=== PATIENT | male | born 1970 | race Caucasian/White ===

== ENCOUNTER 2025-03-22 08:42 | Inpatient (IN) ==
--- NOTE | 2025-03-22 08:49 | Emergency Department Note ---
Impression & Plan Shortness of breath, Hypertensive emergency, CHF exacerbation ED Provider Note NAME: HERACLIO MAXWELL AGE: 55 SEX: M : 1970 ARRIVES VIA: Walk-In INFORMANT: Patient, ED PROVIDER(S): Dillon Chaidez MD CHIEF COMPLAINT: Shortness of breath MEDICAL DECISION MAKING: Patient presents with the above. Patient with significant hypertension and with associated orthopnea and tachypnea noted even at the bedside. Patient was ordered blood work EKG chest x-ray coag studies. The patient was ordered sublingual nitro and Nitropaste. Patient was also ordered IV Lasix 40 mg. Repeat blood pressure prior to administration medications showed a blood pressure 1 2 4/146. The sublingual nitro was canceled. Patient still had Nitropaste administered along with IV Lasix. Patient still with significant hypertension and was ordered additional nitro sublingual. Patient's blood work shows a white count of 11.3 with a hemoglobin 13.9 with a normal platelet count. The patient's kidney function is unremarkable. Troponin 20.5 with a BNP of 268. I did speak with the on-call hospitalist service and the patient was admitted to the medicine service. Discussion w/ other healthcare providers: Michaela Marina PA-C and Dr. Reyes Prior /Outside records reviewed: None Differential diagnosis: Reactive airway disease, pneumonia, pneumothorax, COPD, CHF, ACS, pulmonary embolism, musculoskeletal, GERD as well as other pathologies were considered. Diagnostics, as interpreted by me: ECG: Sinus with PVCs, rate of 100, wide QRS, left lower branch block pattern, no obvious STEMI. T wave inversions in the high lateral leads. Cardiac monitoring: An order was placed for continuous cardiac monitoring. The monitor shows a rate of 98 with sinus rhythm. Patient was placed on pulse oximetry Medical decision rules: None Imaging studies: I informally interpreted the patient's chest x-ray shows pulmonary Vascular congestion with formal report to follow. HPI: Patient presents to concern for shortness of breath and MAK. When trying to lay flat at the bedside the patient became significantly dyspneic and needed to sit upright. The patient has had associated orthopnea and MAK. He states that he did not take his morning medications as he works nights at a steel factory and presented here after his symptoms. They have gotten progressively worse over the last 2 days. No cough or fever. He has had leg swelling. Patient denies any recent changes in medications. He denies any increase in salt or processed foods in his diet. No recent prolonged car plane travel. He states that he does take blood thinners for prior history of A-fib and as well as Dr. Padron with cardiology. PAST MEDICAL HISTORY: See Below PAST SURGICAL HISTORY: See Below SOCIAL HISTORY: See Below HOME MEDICATIONS: See Below ALLERGIES: See Below VITALS: See Below PHYSICAL EXAMINATION: GENERAL: NAD, non-toxic. EYE EXAM: Normal conjunctiva. PERRL, no anisocoria and EOM's grossly intact w/o pain. OROPHARYNX: Moist mucus membranes, grossly normal dentition. NECK: Trachea midline, no stridor. LUNGS: Clear to auscultation. Normal chest wall mechanics. HEART: NSR, no MRG. ABDOMEN: Abdomen soft, non-tender, no masses, no rebound or guarding. BACK: No CVA TTP. SKIN: No rashes and no bruising. UPPER EXTREMITIES: Upper extremities are grossly normal. LOWER EXTREMITIES: Grossly normal, 1-2+ bilateral symmetric lower extremity edema without calf pain or erythema. NEURO EXAM: Awake and alert, follows commands, no obvious facial asymmetry, normal speech, moves all 4 extremities. Past Med/Surg History Problem List (Updated 03/22/25 @ 17:56 by Dillon Chaidez MD) Shortness of breath (Acute) Chest pain Elevated d-dimer Subtherapeutic international normalized ratio (INR) Acute on chronic heart failure with preserved ejection fraction (HFpEF) Noncompliance with medications Elevated troponin CHF exacerbation (Acute) Hypertensive emergency (Acute) Social History Smoking Status: Never smoker Tobacco Type: Smokeless Tobacco (Dip or Chew) Second Hand Exposure: No; Do You Dip or Chew Tobacco: Yes; Hx Alcohol Use: Yes Alcohol type: hard liquor Hx Substance Use: No Preferred Language: Comoran Communication Ability: Effective Therapy Teacher Required: No Beliefs That Will Affect Care: None Current Living Situation: Family Feels Safe at Home: Yes Assistive Devices: CPAP and Glasses Allergies Allergies Allergy/AdvReac Type Severity Reaction Status Date / Time No Known Allergies Allergy Verified 03/22/25 13:40 Home Meds Home Medications Medication Instructions Recorded Confirmed albuterol sulfate 90 mcg/actuation 2 inh inhalation Q4H PRN 03/22/25 03/22/25 aerosol inhaler SOB/Wheezing diltiazem HCl 120 mg 120 mg PO QAM 03/22/25 03/22/25 capsule,extended release 24 hr lisinopril 40 mg tablet 40 mg PO QAM 03/22/25 03/22/25 metformin 500 mg tablet,extended 1,000 mg PO BID 03/22/25 03/22/25 release 24 hr metoprolol tartrate 50 mg tablet 50 mg PO BID 03/22/25 03/22/25 torsemide 20 mg tablet 60 mg PO QAM 03/22/25 03/22/25 warfarin 5 mg tablet 5 mg PO DAILY 03/22/25 03/22/25 Results & Data (ED) Vital Signs Vital Signs - 24 hr 03/22/25 08:44 03/22/25 09:10 03/22/25 09:44 Temperature 36.5 C Temperature Source Temporal Artery Scan Pulse Rate 101 H 98 H Pulse Rate [Right Finger] 96 H Pulse Rate from SpO2 Sensor Respiratory Rate 23 26 H Respiratory Effort / Characteristics Spontaneous Short of Breath SOB on Exertion Respiratory Depth Respiratory Pattern Regular Tachypnea Blood Pressure 243/148 H Blood Pressure [Right Arm] 184/146 H Blood Pressure Mean 179 Blood Pressure Mean [Right Arm] 158 Pulse Oximetry 91 92 Oxygen Delivery Method Room Air Room Air Sepsis Recent Fever Within 48 Hours No Sepsis New/Unexplained Change in Mental Status No Sepsis Action Taken by Nursing No Action Required 03/22/25 09:46 03/22/25 10:00 03/22/25 10:27 Temperature Temperature Source Pulse Rate 91 H Pulse Rate [Right Finger] 91 H 91 H Pulse Rate from SpO2 Sensor 93 H Respiratory Rate 20 24 Respiratory Effort / Characteristics Short of Breath SOB on Exertion Respiratory Depth Shallow Respiratory Pattern Blood Pressure 176/121 H Blood Pressure [Right Arm] 178/125 H 183/123 H Blood Pressure Mean 139 Blood Pressure Mean [Right Arm] 142 143 Pulse Oximetry 89 L 91 Oxygen Delivery Method Room Air Sepsis Recent Fever Within 48 Hours Sepsis New/Unexplained Change in Mental Status Sepsis Action Taken by Long-Term Medications Current Medication List: was personally reviewed by me Laboratory Data Attestation: I reviewed the patient's lab results. 03/22/25 09:00 03/22/25 09:00 Lab Results 12/09/25 Range/Units 09:00 WBC 11.34 H (4.8-10.8) K/ul RBC 5.13 (4.70-6.10) M/uL Hgb 13.9 L (14.0-18.0) g/dL Hct 42.6 (42.0-52.0) % MCV 83.0 (80.0-100.0) fL MCH 27.1 (25.0-34.0) pg MCHC 32.6 (32.0-36.0) g/dL RDW Std Deviation 46.0 (36.4-46.3) fL RDW Coeff of Sanjuanita 15.2 H (11.5-14.5) % Plt Count 269 (130-400) K/uL MPV 11.6 (9.4-12.4) fL Immature Gran % (Auto) 0.3 % Neut % (Auto) 69.9 % Lymph % (Auto) 16.5 % [place] % (Auto) 9.3 % Eos % (Auto) 3.4 % Baso % (Auto) 0.6 % Neut # (Auto) 7.93 H (1.40-6.50) K/uL Lymph # (Auto) 1.87 (1.20-3.40) K/uL [place] # (Auto) 1.06 H (0.11-0.59) K/uL Eos # (Auto) 0.38 (0.00-0.50) K/uL Baso # (Auto) 0.07 (0.00-0.20) K/uL Immature Gran # (Auto) 0.03 (0.01-0.20) K/uL PT 11.9 (9.0-12.0) Seconds INR 1.1 (0.9-1.1) APTT 29 (21-31) Seconds PTT Ratio 1.1 Sodium 140 (136-145) mmol/L Potassium 3.9 (3.5-5.1) mmol/L Chloride 105 (98-107) mmol/L Carbon Dioxide 28 (21-32) mmol/L Anion Gap 7 (3-11) BUN 14 (6-23) mg/dl Creatinine 0.81 (0.6-1.4) mg/dl Est Cr Clr Drug Dosing 136.8 ml/min eGFR 105.43 BUN/Creatinine Ratio 17.3 (10-20) Glucose 111 H (70-99(Fasting)) mg/dl Estimat Average Glucose 134 mg/dl Hemoglobin A1c 6.3 H (4.5-5.6) % Calcium 9.1 (8.6-10.3) mg/dl Magnesium 1.9 (1.7-2.4) mg/dl Total Bilirubin 0.6 (0.2-1.0) mg/dl AST 15 (13-39) U/L ALT 11 (7-52) U/L Alkaline Phosphatase 72 (34-104) U/L Troponin I High Sens 20.5 H (0-20) pg/ml B-Natriuretic Peptide 268 H (0-100) pg/ml Total Protein 7.7 (6.0-8.3) gm/dl Albumin 4.4 (3.4-5.0) gm/dl Globulin 3.3 (2.5-4.0) gm/dl Albumin/Globulin Ratio 1.3 (0.9-2) Administered Medications Enoxaparin Sodium (Enoxaparin Inj 120 Mg/0.8 Ml Syr) 120 mg SQ Q12H [facility] Stop: 04/21/25 14:59 Last Admin: 03/22/25 15:16 Dose: 120 mg Documented By: MECCA Furosemide (Furosemide 40 Mg/4 Ml Vial) 40 mg IV [id number] [facility] Stop: 04/21/25 16:59 Last Admin: 03/22/25 17:09 Dose: 40 mg Documented By: MECCA Insulin Aspart (Insulin Aspart Per Unit Charge) 0 units SC ACHS [facility] Stop: 04/21/25 13:14 Last Admin: 03/22/25 17:09 Dose: 5 units Documented By: MECCA Co-signed By: MARK Admin: 03/22/25 13:33 Dose: Not Given Documented By: QGV Nitroglycerin (Nitroglycerin 2% Ointment 30gm Tube) 2 inch EXT Q6H [facility] Stop: 04/21/25 11:14 Last Admin: 03/22/25 17:10 Dose: 2 inch Documented By: Admin: 03/22/25 14:49 Dose: Not Given Documented By: MECCA Warfarin Sodium (Warfarin Sod 5 Mg Tab) 5 mg PO DAILY@1600 [facility] Stop: 04/21/25 15:59 Last Admin: 03/22/25 15:17 Dose: 5 mg Documented By: MECCA Discontinued Medications Furosemide (Furosemide 40 Mg/4 Ml Vial) 40 mg IV NOW STA Stop: 03/22/25 08:56 Last Admin: 03/22/25 09:04 Dose: 40 mg Documented By: luba Lisinopril (Lisinopril 20 Mg Tab) 20 mg PO NOW STA Stop: 03/22/25 10:39 Last Admin: 03/22/25 11:15 Dose: 20 mg Documented By: APPLE Metoprolol Succinate (Metoprolol Succ 25mg Ext Rel Tab) 25 mg PO NOW STA Stop: 03/22/25 10:42 Last Admin: 03/22/25 11:15 Dose: 25 mg Documented By: APPLE Miscellaneous Information (Patient's Allergy Info Needs Entered) 1 each N/A Q30M ST[facility] Stop: 03/22/25 11:42 Last Admin: 03/22/25 13:40 Dose: 1 each Documented By: QGV Nitroglycerin (Nitroglycerin Sl 0.4 Mg/Tab Tab) 0.4 mg SL NOW STA Stop: 03/22/25 08:56 Last Admin: 03/22/25 10:06 Dose: Not Given Documented By: Nitroglycerin (Nitroglycerin 2% Ointment 30gm Tube) 1 inch EXT NOW STA Stop: 03/22/25 08:56 Last Admin: 03/22/25 09:03 Dose: 1 inch Documented By: luba Nitroglycerin (Nitroglycerin Sl 0.4 Mg/Tab Tab) 0.4 mg SL NOW STA Stop: 03/22/25 09:51 Last Admin: 03/22/25 10:05 Dose: 0.4 mg Documented By: Potassium Chloride (Potassium Chloride Crtab 20 Meq Tabcr) 20 meq PO NOW STA Stop: 03/22/25 10:42 Last Admin: 03/22/25 11:15 Dose: 20 meq Documented By: APPLE Spironolactone (Spironolactone 12.5 Mg Tab) 12.5 mg PO NOW ONE Stop: 03/22/25 11:37 Last Admin: 03/22/25 12:57 Dose: 12.5 mg Documented By: QGV Imaging Data Radiologist's Impression: Chest X-Ray 03/22/25 08:55 XR chest 1V portable CLINICAL HISTORY: Dyspnea. COMPARISON STUDY: No previous studies for comparison. FINDINGS: There is no pneumothorax or pleural effusion. Several old right-sided rib fractures are incidentally noted. There is moderate elevation the right hemidiaphragm. There is cardiomegaly with pulmonary vascular congestion. There is apparent medial right basilar opacity. This may represent atelectasis or pneumonia. IMPRESSION: 1. Apparent medial right basilar opacity. This may be atelectatic or artifactual. However, pneumonia would be difficult to exclude. Radiographic follow up is recommended. 2. Cardiomegaly with pulmonary vascular congestion. 3. Moderate elevation of the right hemidiaphragm. ACT 112: Negative or not required by law. Electronically signed by: Renato Coleman M.D. 03/22/2025 9:40 AM Discharge Plan Visit Data Chief Complaint: Shortness of Breath/Dyspnea Stated Complaint: SOB, CHEST TIGHT, HX HIGH BP ED Provider: Dillon Chaidez Discharge Problem: Shortness of breath, Hypertensive emergency, CHF exacerbation Patient Disposition: Admitted As Inpatient Condition: Good Discharge Instructions Interventions: ED Discharge Assessment Last Done: 03/22/25 13:36 Discharge Problem: CHF exacerbation Qualifiers: Heart failure type: unspecified Qualified Code(s): I50.9 - Heart failure, unspecified
[2025-03-22] MEDS: NITROGLYCERIN 2% OINTMENT 30GM TUBE EXT STA (09:03)
[2025-03-22] MEDS: FUROSEMIDE 40 MG/4 ML VIAL IV STA (09:04)
[2025-03-22 09:28] LABS: Hematocrit (blood only) 42.6 % (42.0-52.0); Hemoglobin 13.9 g/dL (14.0-18.0); Immature Granulocytes # (auto) 0.03 K/uL (0.01-0.20); Immature Granulocytes % (auto) 0.3 %; Mean Corpuscular Hemoglobin 27.1 pg (25.0-34.0); Mean Corpuscular Volume 83.0 fL (80.0-100.0); Platelet Count 269 K/uL (130-400); RDW Standard Deviation 46.0 fL (36.4-46.3); Red Blood Count 5.13 M/uL (4.70-6.10); White Blood Count 11.34 K/ul (4.8-10.8)
--- NOTE | 2025-03-22 09:41 | XRay Report ---
XR chest 1V portable CLINICAL HISTORY: Dyspnea. COMPARISON STUDY: No previous studies for comparison. FINDINGS: There is no pneumothorax or pleural effusion. Several old right-sided rib fractures are inc identally noted. There is moderate elevation the right hemidiaphragm. There is cardiomegaly with pulm onary vascular congestion. There is apparent medial right basilar opacity. This may represent atelect asis or pneumonia. IMPRESSION: 1. Apparent medial right basilar opacity. This may be atelectatic or artifactual. However, pneumonia would be difficult to exclude. Radiographic follow up is recommended. 2. Cardiomegaly with pulmonary vascular congestion. 3. Moderate elevation of the right hemidiaphragm. ACT 112: Negative or not required by law. Electronically signed by: Renato Coleman M.D. 03/22/2025 9:40 AM
[2025-03-22 09:45] LABS: Alanine Aminotransferase 11.0 U/L (7-52); Albumin Globulin Ratio 1.3 (0.9-2); Albumin Level 4.4 gm/dl (3.4-5.0); Alkaline Phosphatase 72.0 U/L (34-104); Anion Gap 7.0 (3-11); Bilirubin,Total 0.6 mg/dl (0.2-1.0); Blood Urea Nitrogen 14.0 mg/dl (6-23); Calcium 9.1 mg/dl (8.6-10.3); Carbon Dioxide 28.0 mmol/L (21-32); Chloride 105.0 mmol/L (98-107); Creatinine Clr Calc Pharmacy 136.8 ml/min; Globulin 3.3 gm/dl (2.5-4.0); Glucose 111.0 mg/dl (70-99(Fasting)); Magnesium 1.9 mg/dl (1.7-2.4); Potassium 3.9 mmol/L (3.5-5.1); Sodium 140.0 mmol/L (136-145); Total Protein 7.7 gm/dl (6.0-8.3)
[2025-03-22 09:57] LABS: INR 1.1 (0.9-1.1); Partial Thromboplastin Time 29 Seconds (21-31); Prothrombin Time 11.9 Seconds (9.0-12.0)
[2025-03-22] MEDS: NITROGLYCERIN SL 0.4 MG/TAB TAB SL STA ×2 (10:05→10:06)
--- NOTE | 2025-03-22 10:14 | History & Physical Report ---
Date of Service March 22, 2025 Assessment & Plan (1) CHF exacerbation: (2) Elevated troponin: (3) Hypertensive emergency: (4) Noncompliance with medications: Plan Patient is a 55y/o M with PMHx significant for DM type II, LILLIANA on CPAP, history of atrial flutter anticoagulated on Coumadin, chronic diastolic CHF, HTN, morbid obesity, tobacco use disorder and history of alcohol abuse as per records who presented to the ED with c/o SOB x past few days, primarily with exertion; + orthopnea. Also with exertional chest tightness. #Acute on chronic diastolic CHF ISO medication noncompliance CXR: cardiomegaly w/ pulm vasc congestion CXR did also note possible medial R basilar opacity c/f atelectasis vs artifact vs PNA -Slight leukocytosis on labs however no infectious s/sx to suggest PNA; denies cough/congestion, fever -Likely atelectatic in nature, ISP ordered TTE, 08/2024: EF 60-64%, moderately increased LV wall thickness, grade I DD, mildly enlarged aortic root, dilated proximal IVC BNP 268 Check updated TTE Supposed to be taking torsemide 60mg QAM TPA >> unclear when this was last taken S/p 40mg IV Lasix in ED Continue IV Lasix 40mg BID for now Replete electrolytes PRN Monitor daily wts, I&Os closely Supplemental O2 PRN for goal O2 sat>90% Check AM lipid panel >> not on statin therapy [employer] #HTN emergency #Elevated troponin 2/2 HTN emergency ISO medication noncompliance BP 240s/140s on arrival S/p SL nitro x 1, nitro paste, 40mg IV Lasix in ED BP 180s/120s at time of admission shortly after 10AM Will give 20mg po lisinopril, 25mg po Lopressor, Aldactone 12.5mg now Then continue with Lopressor 25mg BID, lisinopril 40mg QAM, Aldactone 12.5mg QAM Hold Cardizem as per below Continue nitro paste Q6H for now Appreciate cards consult Trend trop EKG with CP PRN #H/o L anterior fascicular block #H/o LVH with secondary QRS widening and repolarization abnormality Both of these findings seen on prior EKG done in August 2024 EKG today appears grossly unchanged compared to prior #H/o atrial flutter s/p TAVON guided DCCV in 2019 #Chronic anticoagulation therapy with Coumadin #Subtherapeutic INR Last seen by Terry rosenberg in August 2020 Was previously on Eliquis >> unclear why this was stopped INR 1.1 today, states he took his Coumadin yesterday Starting SQ Lovenox bridge w/ 5mg Coumadin daily for now >> follow repeat PT/INR Check BLE venous doppler US given BLE edema, subtherapeutic INR Unclear if pt has been taking Cardizem >> last filled in August 2024 #Medication noncompliance Pt admits to not taking meds on routine basis Most meds last filled in Dec 2024 per external med hx report #DMII Hgb A1c 7.5% as of August 2024 On metformin SSI protocol while admitted Appreciate glycemic pharm consult for assistance w/ insulin management Follow BSG checks ACHS #H/o alcohol abuse as per records Last alcoholic beverage consumed approx 2wk ago #Tobacco use Daily chewing tobacco use Cessation encouraged Denied need for nicotine patch at this time #LILLIANA Intermittent noncompliance w/ CPAP [employer] Agreeable with CPAP HS during hospitalization Education provided on the importance of CPAP compliance #Morbid obesity Lifestyle changes encouraged DVT Prophylaxis: SQ Lovenox, Coumadin Code Status: FULL CODE Disposition: Admit to PCU Patient seen in collaboration with Dr. Reyes. Please see addendum. I spent a total of 85 minutes coordinating, documenting, and providing care for this patient excluding time spent in the performance of separately billed services or time spent by another provider/QHP. This included personally reviewing all current laboratories and imaging studies, medical reconciliation, outpatient chart review and discussion with specialists. This chart was completed in part utilizing Speech Voice Recognition Software. Grammatical errors, random word insertions, pronoun errors, and incomplete sentences are an occasional consequence of this system due to software limitations, ambient noise, and hardware issues. Any formal questions or concerns about the content, text, or information contained within the body of this dictation should be directly addressed to the provider for clarification. History of Present Illness Chief Complaint: SOB Primary Care Provider: Damian Mejia DO Patient is a 55y/o M with PMHx significant for DM type II, LILLIANA on CPAP, history of atrial flutter anticoagulated on Coumadin, chronic diastolic CHF, HTN, morbid obesity, tobacco use disorder and history of alcohol abuse as per records who presented to the ED with c/o SOB. History obtained from the patient, discussion with ED provider and associated chart review. Admits to worsening SOB over the "past couple of days." Primarily with exertion however he has been experiencing significant orthopnea. Has LILLIANA, somewhat noncompliant with CPAP use. Has also noticed worsening BLE edema over the past week. States he takes his medications "every couple of days." Did not take any medications [employer]. When questioned in particular regarding his diuretic regimen, he states that he last took his torsemide "a few days ago" and that he does not like taking this medication as prescribed because it makes him urinate too often. Does not keep track of his weight; unsure of baseline weight. Has been experiencing some chest tightness, primarily with exertion. Typically resolves with rest. Had some lightheadedness and dizziness yesterday. No reported cough or fever. Urinating without issue. Passing bowels okay. Uses chewing tobacco. Home Medications Medication Instructions Recorded Confirmed Type albuterol sulfate 90 mcg/actuation 2 inh inhalation Q4H PRN 03/22/25 03/22/25 History aerosol inhaler SOB/Wheezing diltiazem HCl 120 mg 120 mg PO QAM 03/22/25 03/22/25 History capsule,extended release 24 hr lisinopril 40 mg tablet 40 mg PO QAM 03/22/25 03/22/25 History metformin 500 mg tablet,extended 1,000 mg PO BID 03/22/25 03/22/25 History release 24 hr metoprolol tartrate 50 mg tablet 50 mg PO BID 03/22/25 03/22/25 History torsemide 20 mg tablet 60 mg PO QAM 03/22/25 03/22/25 History warfarin 5 mg tablet 5 mg PO DAILY 03/22/25 03/22/25 History Past Med/Surg History Problem List (Updated 03/22/25 @ 11:21 by Michaela Renner PA-C) Noncompliance with medications Elevated troponin CHF exacerbation Hypertensive emergency Social History Smoking Status: Never smoker Tobacco Type: Smokeless Tobacco (Dip or Chew) Preferred Language: Uzbek Feels Safe at Home: Yes Review of Systems Review of Systems: At least ten systems reviewed and negative, except as noted in the HPI. Physical Exam Physical Exam: General: Obese M, NAD, sitting up at side of bed, A&Ox3 HEENT: Normocephalic, atraumatic, moist mucous membranes Respiratory: Mild tachypnea at rest, O2 sat 89-90% on RA, bibasilar crackles, no wheezing, no accessory muscle use Cardiovascular: RRR, 1+ RLE, 1-2+ LLE Abdomen/GI: Normal bowel sounds, soft, nontender to palpation in all quadrants. Extremities/Musculoskeletal: No cyanosis or clubbing, extremities motor strength intact, moves all extremities Neurologic: No overt focal deficits, CN's II-XI not formally tested but appear grossly intact bilaterally Results & Data Results & Data Vital Signs (Past 12 Hours) Vital Signs Temp Pulse Pulse Resp BP BP Pulse Ox 03/22/25 09:46 91 H 20 178/125 H 89 L 03/22/25 09:44 98 H 03/22/25 09:10 96 H 26 H 184/146 H 92 03/22/25 08:44 36.5 C 101 H 23 243/148 H 91 O2 Del Method 03/22/25 09:46 Room Air 03/22/25 09:44 03/22/25 09:10 Room Air 03/22/25 08:44 Room Air Laboratory Results Short CBC 03/22/25 Range/Units 09:00 WBC 11.34 H (4.8-10.8) K/ul Hgb 13.9 L (14.0-18.0) g/dL Hct 42.6 (42.0-52.0) % Plt Count 269 (130-400) K/uL BMP 03/22/25 09:00 Sodium 140 Potassium 3.9 Chloride 105 Carbon Dioxide 28 BUN 14 Creatinine 0.81 Glucose 111 H Calcium 9.1 Liver Function 03/22/25 Range/Units 09:00 Total Bilirubin 0.6 (0.2-1.0) mg/dl AST 15 (13-39) U/L ALT 11 (7-52) U/L Alkaline Phosphatase 72 (34-104) U/L Albumin 4.4 (3.4-5.0) gm/dl Diagnostic Findings Chest X-Ray 03/22/25 08:55 XR chest 1V portable CLINICAL HISTORY: Dyspnea. COMPARISON STUDY: No previous studies for comparison. FINDINGS: There is no pneumothorax or pleural effusion. Several old right-sided rib fractures are incidentally noted. There is moderate elevation the right hemidiaphragm. There is cardiomegaly with pulmonary vascular congestion. There is apparent medial right basilar opacity. This may represent atelectasis or pneumonia. IMPRESSION: 1. Apparent medial right basilar opacity. This may be atelectatic or artifactual. However, pneumonia would be difficult to exclude. Radiographic follow up is recommended. 2. Cardiomegaly with pulmonary vascular congestion. 3. Moderate elevation of the right hemidiaphragm. ACT 112: Negative or not required by law. Electronically signed by: Renato Coleman M.D. 03/22/2025 9:40 AM Medications Administered Discontinued Medications Furosemide (Furosemide 40 Mg/4 Ml Vial) 40 mg IV NOW STA Stop: 03/22/25 08:56 Last Admin: 03/22/25 09:04 Dose: 40 mg Documented By: luba Nitroglycerin (Nitroglycerin Sl 0.4 Mg/Tab Tab) 0.4 mg SL NOW STA Stop: 03/22/25 08:56 Last Admin: 03/22/25 10:06 Dose: Not Given Documented By: Nitroglycerin (Nitroglycerin 2% Ointment 30gm Tube) 1 inch EXT NOW STA Stop: 03/22/25 08:56 Last Admin: 03/22/25 09:03 Dose: 1 inch Documented By: luba Nitroglycerin (Nitroglycerin Sl 0.4 Mg/Tab Tab) 0.4 mg SL NOW STA Stop: 03/22/25 09:51 Last Admin: 03/22/25 10:05 Dose: 0.4 mg Documented By: MR Supervising Physician Co-Signing Physician Notes I have seen and discussed the case with the collaborating advanced practitioner. I agree with the above H&P. I have reviewed and confirmed the patients medical history, the findings on physical examination, and the patients diagnosis and treatment plan with Zurdo WISE and agree with the information documented. Evaluated at bedside with daughter present. Reports chest tightness and SOB started yesterday. Patient states that he just forgets his meds and takes them "sometimes"...It was attempted to explore any barriers to him taking his medications and it seems to be more about perceived importance. It was expressed how vital it is to take his meds and to continue his AC to prevent the debilitating effects and the progressive nature of his comorbities. His daughter was at bedside and reports being unaware of the degree of her father's illnesses. Patient states its been awhile since he took his meds. He states it may have been insurance as to why he is not on Farxiga or Eliquis any longer. Exam notable for pleasant gentleman sitting at bedside, cardiac exam with RRR, no murmur appreciated, no wheezing or crackles, 2+ BLE pitting edema, seeming R>L EKG from august Reviewed from [facility], similar read to current: CONCLUSIONS: Sinus tachycardia Left anterior fascicular block Left ventricular hypertrophy Abnormal ECG When compared with ECG of 17-Aug-2020 12:09, Left anterior fascicular block is now Present T wave amplitude has increased in Lateral leads Ventricular Rate: 102 Atrial Rate: 102 WI Interval: 184 QRS Duration: 114 QT/QTc: 374/487 ms P-R-T [place]: 20 : -55 : 63 degrees #HTN Emergency #Acute on chronic HFpEF Reduced from 243 to 178 over a manner of about two hours. Patient did not take his BP meds for "some time" He has previously been on metorpolol succinate 50mg bid, diltazem 180mg and lisinopril 40mg. Given his noncompliance will reintroduce ACI, BB, and start spironolactone. Will defer resumption of CCB to Cards, but iso HF exacerbation will hold at this time repeat ECHO Cards consult continue IV lasix continue nitropaste with hold for sbp <160 #Hx of a flutter s/p DCCV bridge back onto coumadin add warfarin 5mg this afternoon #LILLIANA encourage compliance cpap hs #tobacco use 1 can snuff daily counselled on cessation, declined #alcohol use last drink 2 weeks ago, encouraged abstinence iso multiple cardiac comorbities #morbid obesity should be counselled, however, at time of exam multiple other issues discussed and patient overwhelmed with multitude of other recommendations I spent a total of 25 minutes coordinating, documenting, and providing care for this patient excluding time spent in the performance of separately billed services. All of the aforementioned completed outside of collaborating with the assigned advanced practitioner for a full treatment plan. I have reviewed the advanced practitioner's documentation, and I agree with, and take responsibility for the plan of care
[2025-03-22] MEDS ORDERED: ENOXAPARIN 1 MG/KG SQ SCH (10:45)
[2025-03-22] MEDS ORDERED: METOPROLOL SUCC 25MG EXT REL TAB PO ONE (10:45)
[2025-03-22] MEDS ORDERED: PHARMACY GLYCEMIC MGMT CONSULT PRN (10:49)
[2025-03-22] MEDS ORDERED: CARBOHYDRATES FOR HYPOGLYCEMIA PO PRN (10:49)
[2025-03-22] MEDS ORDERED: GLUCOSE 10 TAB/TUBE PO PRN (10:49)
[2025-03-22] MEDS ORDERED: GLUCOSE 40% GEL 15 GM TUBE PO PRN (10:49)
[2025-03-22] MEDS ORDERED: GLUCAGON FOR INJ 1 MG VIAL SQ PRN (10:49)
[2025-03-22] MEDS ORDERED: DEXTROSE 50% 50 ML SYRINGE IV PRN (10:49)
[2025-03-22] MEDS: METOPROLOL SUCC 25MG EXT REL TAB PO STA (11:15)
[2025-03-22] MEDS: POTASSIUM CHLORIDE CRTAB 20 MEQ TABCR PO STA (11:15)
[2025-03-22 11:20] LABS: Hemoglobin A1C 6.3 % (4.5-5.6)
[2025-03-22] MEDS ORDERED: POLYETHYLENE (MIRALAX) 17 GM PACK PO PRN (11:47)
[2025-03-22] MEDS ORDERED: ONDANSETRON INJ 2 MG/ML 2 ML VIAL IV PRN (11:47)
[2025-03-22] MEDS ORDERED: MAGNESIUM HYDROXIDE SUSP 30 ML UDC PO PRN (11:47)
--- NOTE | 2025-03-22 12:32 | Cardiology Consultation ---
Date of Consultation March 22, 2025 Assessment & Plan (1) Hypertensive emergency: (2) Chest pain: (3) Shortness of breath: (4) Elevated troponin: (5) Acute on chronic heart failure with preserved ejection fraction (HFpEF): (6) Subtherapeutic international normalized ratio (INR): (7) Elevated d-dimer: (8) Noncompliance with medications: Plan Assessment: 55 year old male with history of paroxysmal Atrial flutter with prior cardioversion, HTN, LILLIANA on CPAP with known medication non-compliance that presents with several weeks of worsening dyspnea, chest tightness on exertion and orthopnea. BP markedly elevated. Patient has not taken regular doses of any of his medications including his warfarin. Cardiology consulted for further evaluation and recommendations. Plan: 1. Hypertensive emergency 2. chest pain 3. Shortness of breath 4. Elevated Troponin 5. Acute on Chronic HFpEF 6. Elevated d-dimer 7. Non-compliance with medications -patient with known non-compliance of his medications for multiple reasons/partly related to shift work. -BP markedly elevated with some improvement after receiving spironolactone, Toprol xl, Lisinopril, Furosemide and Nitro paste. -chest pain with mild troponin elevation in the setting of markedly elevated blood pressures as well as evidence of volume overload on exam. -Continue with Furosemide 40mg IV BID -Obtain echocardiogram to assess overall structure and function -Continue Lisinopril 40mg QD, Toprol xl 25mg PO BID, Spironolactone 12.5mg Daily -Continue Nitro paste at this time -Strict I&O, daily weights with a standing scale and close monitoring of renal function/electrolytes. Serum K > 4.0 and serum mag > 2.0 -Further recommendations pending echocardiogram as appropriate -Continue to monitor on telemetry -Known non-compliance of all medications including warfarin. Elevated D-dimer. Venous duplex negative. may consider CT chest to exclude PE as well as address any concerns of possible superimposed infectious process -Continue with dose titration of warfarin (bridging with Lovenox) to obtain therapeutic INR. Case has been discussed with Dr. Mcgee. Further recommendations regarding plan of care as per his assessment. LILLIE Morrison [facility] Supervising Physician Co-Signing Physician Notes Attending attestation: Case reviewed with the advanced practitioner. I have personally performed a history and physical examination on the patient. I have reviewed the advanced practitioner's documentation on the date of service referenced in note, and I agree with, and take responsibility for the plan of care. Subjective: Patient states feeling better by the time I had seen him having been transferred from the emergency department to the progressive care unit. His presenting blood pressure today was 243/148 and is now down to 164/97. Telemetry reveals sinus rhythm in the 90s Review of chart reveals past diagnosis of typical atrial flutter for which he underwent transesophageal echocardiogram guided direct-current cardioversion at [facility] performed by Dr. Hartman in March,. Exam: Cardiovascular regular rhythm, no murmurs, bilateral lower extremity edema, right worse than left Data: EKG performed on arrival 03/22/2025 revealed sinus rhythm at 100 bpm, diffuse nonspecific repolarization abnormalities perhaps in keeping with high blood pressure related heart disease Mild troponin elevation with measurements of 20.5, 22.3, and 20.1 PG per mL (flat trend) Impression/ Plan: Hypertensive urgency Nonadherence Possible mild volume overload on chest x-ray * Agree with plan to resume outpatient treatment with metoprolol succinate 25 mg twice daily, warfarin, spironolactone. * Agree with Lovenox bridge given subtherapeutic INR and history of past atrial flutter although he appears to be in sinus rhythm at present * Agree with topical nitroglycerin 2 inches every 6 hours, lisinopril * Echocardiogram completed and will be reviewed. Further recommendations will be forthcoming Justen Mcgee DO History of Present Illness Reason for Consultation: Hypertensive emergency; Non-compliance Requesting Physician: Dr. Reyes [facility] hospitalist Attending Physician: Diane Reyes MD History of Present Illness HPI: Patient is a 55 year old male with PMHx as outlined below that presents to the ER with complaints of shortness of breath with exertion over the past week, +orthopnea and exertional chest tightness. Notes only taking his medications "every few days" and admits to only taking a partial dose of of his diuretic one or two times per week due to increased urination making it difficult with his work. He is sitting up in a chair at time of my examination, endorses difficulty laying flat. He has not been able to lay flat in bed or even on his side for the past 3-4 days. He does not monitor his BP at home or weights, but has been noticing a steady increase in chest tightness with associated dyspnea for past few weeks, most notable this week. BP markedly elevated on arrival 243/148 EKG on arrival SR with PVC, left atrial enlargement, LAFB, LVH This was compared with an EKG from [facility] 08/2024 and appears unchanged. Chest xray IMPRESSION: 1. Apparent medial right basilar opacity. This may be atelectatic or artifactual. However, pneumonia would be difficult to exclude. Radiographic follow up is recommended. 2. Cardiomegaly with pulmonary vascular congestion. 3. Moderate elevation of the right hemidiaphragm. Elevated WBC D-dimer positive Venous doppler negative for DVT Mild troponin elevation, flat 20.5/22.3 Last known hospitalization was 08/19-08/21/2024 at [facility] for acute resp failure with hypoxia (pneumonia/bronchitis) Cardiac problems: 1. History of Typical atrial flutter dx in 2019, started on Eliquis but transitioned to Warfarin, Metoprolol and diltiazem s/p DCCV 04/13/2020 2. HTN 3. HFpEF 4. LILLIANA on CPAP 5. Obesity 6. Tobacco use Allergies Allergy/AdvReac Type Severity Reaction Status Date / Time No Known Allergies Allergy Verified 03/22/25 13:40 Home Medications Medication Instructions Recorded Confirmed Type albuterol sulfate 90 mcg/actuation 2 inh inhalation Q4H PRN 03/22/25 03/22/25 History aerosol inhaler SOB/Wheezing diltiazem HCl 120 mg 120 mg PO QAM 03/22/25 03/22/25 History capsule,extended release 24 hr lisinopril 40 mg tablet 40 mg PO QAM 03/22/25 03/22/25 History metformin 500 mg tablet,extended 1,000 mg PO BID 03/22/25 03/22/25 History release 24 hr metoprolol tartrate 50 mg tablet 50 mg PO BID 03/22/25 03/22/25 History torsemide 20 mg tablet 60 mg PO QAM 03/22/25 03/22/25 History warfarin 5 mg tablet 5 mg PO DAILY 03/22/25 03/22/25 History Patient History Social History Smoking Status: Never smoker Tobacco Type: Smokeless Tobacco (Dip or Chew) Second Hand Exposure: No; Do You Dip or Chew Tobacco: Yes; Hx Alcohol Use: Yes Alcohol type: hard liquor Hx Substance Use: No Preferred Language: Ugandan Communication Ability: Effective Life Support Technician Required: No Beliefs That Will Affect Care: None Current Living Situation: Family Feels Safe at Home: Yes Assistive Devices: CPAP and Glasses Review of Systems Review of Systems: All systems reviewed & are unremarkable except as noted in HPI & below Physical Exam Constitutional: well developed, + ill appearing and + obese; no acute distress Neck: normal visual inspection and trachea midline Respiratory: no respiratory distress, no labored breathing and no cough Auscultation: + diminished lung sounds (bilateral bases ); no crackles, no rales, no rhonchi and no wheezes Cardiovascular: Rate/Rhythm: regular rate and regular rhythm Heart Sounds: normal S1 and normal S2; no murmur Vessels: dorsalis pedis pulses present; no JVD Extremities: + edema (+1 BLE Right appears larger than left ) Skin: no rashes, warm and dry Results & Data Vital Signs (Past 12 Hours) Vital Signs Temp Pulse Pulse Resp BP BP Pulse Ox 03/22/25 11:47 03/22/25 10:27 91 H 24 176/121 H 91 03/22/25 10:00 91 H 183/123 H 03/22/25 09:46 91 H 20 178/125 H 89 L 03/22/25 09:44 98 H 03/22/25 09:10 96 H 26 H 184/146 H 92 03/22/25 08:44 36.5 C 101 H 23 243/148 H 91 Pulse Ox O2 Del Method O2 Del Method 03/22/25 11:47 92 Room Air 03/22/25 10:27 03/22/25 10:00 03/22/25 09:46 Room Air 03/22/25 09:44 03/22/25 09:10 Room Air 03/22/25 08:44 Room Air Laboratory Results Cardiac Enzymes 03/22/25 03/22/25 03/22/25 Range/Units 09:00 10:50 13:00 AST 15 (13-39) U/L Troponin I High Sens 20.5 H 22.3 H 20.1 H (0-20) pg/ml B-Natriuretic Peptide 268 H (0-100) pg/ml Coagulation 03/22/25 Range/Units 09:00 PT 11.9 (9.0-12.0) Seconds APTT 29 (21-31) Seconds B-Natriuretic Peptide 268 H (0-100) pg/ml CBC 03/22/25 Range/Units 09:00 WBC 11.34 H (4.8-10.8) K/ul RBC 5.13 (4.70-6.10) M/uL Hgb 13.9 L (14.0-18.0) g/dL Hct 42.6 (42.0-52.0) % Plt Count 269 (130-400) K/uL Neut # (Auto) 7.93 H (1.40-6.50) K/uL Lymph # (Auto) 1.87 (1.20-3.40) K/uL [place] # (Auto) 1.06 H (0.11-0.59) K/uL Eos # (Auto) 0.38 (0.00-0.50) K/uL Baso # (Auto) 0.07 (0.00-0.20) K/uL Comprehensive Metabolic Panel 03/22/25 Range/Units 09:00 Sodium 140 (136-145) mmol/L Potassium 3.9 (3.5-5.1) mmol/L Chloride 105 (98-107) mmol/L Carbon Dioxide 28 (21-32) mmol/L BUN 14 (6-23) mg/dl Creatinine 0.81 (0.6-1.4) mg/dl Glucose 111 H (70-99(Fasting)) mg/dl Calcium 9.1 (8.6-10.3) mg/dl AST 15 (13-39) U/L ALT 11 (7-52) U/L Alkaline Phosphatase 72 (34-104) U/L Total Protein 7.7 (6.0-8.3) gm/dl Albumin 4.4 (3.4-5.0) gm/dl Intake and Output 03/21/25 03/22/25 03/22/25 22:59 06:59 14:59 Output Total 200 / 200 Balance -200 / -200 Output: Urine 200 / 200 Other: Weight 126.6 kg Weight Measurement Method Chair Scale Patient Weight 03/23/25 06:59 Weight 126.6 kg Diagnostic Findings Echocardiogram 08/20/2024 [facility] LVEF 60-64% LV wall thickness moderately increased (concentric) Grade I diastolic dysfunction No dilated cardiac chambers Aortic root is mildly enlarged Prox IVC dilated. Coding Level of Care Code 63437 IN/OBS CONSULT LVL 5,80M Diagnoses Hypertensive emergency I16.1 Chest pain R07.9 Shortness of breath R06.02 Elevated troponin R79.89 Acute on chronic heart failure with preserved ejection fraction (HFpEF) I50.33 Subtherapeutic international normalized ratio (INR) R79.1 Elevated d-dimer R79.89 Noncompliance with medications Z91.148 Time Spent (min) 50
[2025-03-22] MEDS: SPIRONOLACTONE 12.5 MG TAB PO ONE (12:57)
--- NOTE | 2025-03-22 13:26 | Pharmacy Report ---
Pharmacy Glycemic Short Note 2 - Date of Service March 22, 2025 - Glycemic Short BSG Results (Last 24 hours): 03/22/25 03/22/25 09:00 13:00 Glucose 111 H POC Glucose 100 H OUTPATIENT ANTIDIABETIC REGIMEN: * Metformin 1000 mg ER PO BID A1c = 6.3% ASSESSMENT: * Jaime is a 55 yo M with h/o DM type II who presented to the ED with c/o SOB for the past few days and exertional chest tightness. * He is well controlled on metformin as an outpatient, evidenced by A1c of 6.3%. Metformin has been held for admission. He has been started on SC short-acting insulin ACHS. Hold basal insulin pending additional BSG data. PLAN FOR INPATIENT GLYCEMIC CONTROL: * Hold outpatient oral diabetes medications * Basal insulin * none * Bolus insulin * NovoLog per scale ACHS or Q6hrs while NPO * Goal Range: Low 110 mg/dL - High 160 mg/dL * Correction Factor: 25 mg/dL/unit * Nutritional / Prandial insulin per carb ratio of 1 unit per 8 grams CHO consumed
--- NOTE | 2025-03-22 13:31 | Ultrasound Report ---
BILATERAL LOWER EXTREMITY VENOUS DOPPLER CLINICAL HISTORY: Bilateral lower extremity edema. COMPARISON STUDY: No previous studies for comparison. TECHNIQUE: Sonography of the deep venous system of the bilateral lower extremities was performed. Co mpression and augmentation were evaluated. FINDINGS: The bilateral common femoral, superficial femoral and popliteal veins were compressible. A ugmentation was normal. Flow was shown within the deep calf vessels. IMPRESSION: No evidence of deep venous thrombus within the bilateral lower extremities. ACT 112: Negative or not required by law. Electronically signed by: Renato Coleman M.D. 03/22/2025 1:29 PM
[2025-03-22] MEDS: INSULIN ASPART PER UNIT CHARGE SC SCH (13:33)
[2025-03-22] MEDS: NITROGLYCERIN 2% OINTMENT 30GM TUBE EXT SCH (14:49)
[2025-03-22] MEDS: ENOXAPARIN INJ 120 MG/0.8 ML SYR SQ SCH (15:16)
[2025-03-22] MEDS: WARFARIN SOD 5 MG TAB PO SCH (15:17)
[2025-03-22] MEDS: FUROSEMIDE 40 MG/4 ML VIAL IV SCH (17:09)
[2025-03-22] MEDS: OPTIRAY 320 125ml IV ONE (18:27)
[2025-03-22] MEDS: ACETAMINOPHEN 325 MG TAB PO PRN (18:37)
--- NOTE | 2025-03-22 19:02 | CT Scan Report ---
CT pulmonary angiogram with IV contrast History: Chest pain COMPARISON: None TECHNIQUE: CT angiography of the chest was performed without IV contrast followed by IV contrast, including 3D post processing CTA image reconstruction. Dose reduction techniques were achieved by using automatic exposure control and/or adjustment of mA and/or kV according to patient size and/or use of iterative reconstruction technique. FINDINGS: Diagnostic quality: Adequate There is no evidence for pulmonary embolism. The heart is not enlarged. There is no pericardial effusion. There are no abnormally enlarged hilar or mediastinal lymph nodes. The central tracheobronchial tree is clear. Small pleural effusions. Mosaic attenuation of the lung parenchyma. Limited visualized upper abdomen. No destructive osseous changes are seen. IMPRESSION: No evidence for pulmonary embolism. Small pleural effusions. Mosaic attenuation of the lung suggesting small airway or small vessel disease. Electronically signed by Chirag Cha 03-22-2025 7:02 PM
--- NOTE | 2025-03-22 19:52 | XCELERA ---
[id number] \\[id number]
[2025-03-22] MEDS: METOPROLOL SUCC 25MG EXT REL TAB PO SCH (20:02)
[2025-03-23 06:26] LABS: Hematocrit (blood only) 40.5 % (42.0-52.0); Hemoglobin 13.3 g/dL (14.0-18.0); Immature Granulocytes # (auto) 0.03 K/uL (0.01-0.20); Immature Granulocytes % (auto) 0.3 %; Mean Corpuscular Hemoglobin 27.1 pg (25.0-34.0); Mean Corpuscular Volume 82.7 fL (80.0-100.0); Platelet Count 263 K/uL (130-400); RDW Standard Deviation 45.9 fL (36.4-46.3); Red Blood Count 4.90 M/uL (4.70-6.10); White Blood Count 9.30 K/ul (4.8-10.8)
[2025-03-23 06:56] LABS: INR 1.2 (0.9-1.1); Prothrombin Time 12.8 Seconds (9.0-12.0)
[2025-03-23 06:57] LABS: Anion Gap 7.0 (3-11); Blood Urea Nitrogen 17.0 mg/dl (6-23); Calcium 9.0 mg/dl (8.6-10.3); Carbon Dioxide 30.0 mmol/L (21-32); Chloride 102.0 mmol/L (98-107); Cholesterol 139.0 mg/dl (0-200); Creatinine Clr Calc Pharmacy 107.3 ml/min; Glucose 87.0 mg/dl (70-99(Fasting)); HDL Cholesterol 25.0 mg/dl; Magnesium 1.9 mg/dl (1.7-2.4); Potassium 3.4 mmol/L (3.5-5.1); Sodium 139.0 mmol/L (136-145); Triglycerides 71.0 mg/dl (0-150)
[2025-03-23] MEDS: SPIRONOLACTONE 12.5 MG TAB PO SCH (07:55)
[2025-03-23] MEDS: POTASSIUM CHLORIDE CRTAB 20 MEQ TABCR PO STA (08:38)
--- NOTE | 2025-03-23 08:44 | Cardiology Progress Note ---
Date of Service March 23, 2025 Assessment & Plan (1) Hypertensive emergency: (2) Chest pain: (3) Shortness of breath: (4) Elevated troponin: (5) Acute on chronic heart failure with preserved ejection fraction (HFpEF): (6) Subtherapeutic international normalized ratio (INR): (7) Elevated d-dimer: (8) Noncompliance with medications: Plan Assessment: 55 year old male with history of paroxysmal Atrial flutter with prior cardioversion, HTN, LILLIANA on CPAP with known medication non-compliance that presents with several weeks of worsening dyspnea, chest tightness on exertion and orthopnea. BP markedly elevated. Patient has not taken regular doses of any of his medications including his warfarin. Cardiology consulted for further evaluation and recommendations. Plan 03/23/25: 1. Hypertensive emergency 2. chest pain 3. Shortness of breath 4. Elevated Troponin 5. Acute on Chronic HFpEF 6. Elevated d-dimer 7. Non-compliance with medications -patient with known non-compliance of his medications for multiple reasons/partly related to shift work. -BP with significant improvement, but remains above target. -Discontinue Nitro-paste -Discontinue Toprol xl in favor of switching to Coreg 6.25mg PO BID; first dose this evening (patient received his Toprol xl this morning) -Continue Lisinopril 40mg PO QD, Spironolactone 12.5mg PO QD -chest pain with mild troponin elevation in the setting of markedly elevated blood pressures as well as evidence of volume overload on exam. -Continue with Furosemide 40mg IV BID--reassess volume status in the AM and assess for readiness to transition to oral regimen -Echocardiogram obtained showing preserved LVEF, no regional wall motion abnormalities and moderate to severe concentric LVH in the setting of longstanding poorly controlled hypertension. -Strict I&O, daily weights with a standing scale and close monitoring of renal function/electrolytes. Serum K > 4.0 and serum mag > 2.0 -Continue to monitor on telemetry--no acute events overnight. -Encourage patient to be up walking the halls. -Known non-compliance of all medications including warfarin. Elevated D-dimer. Venous duplex negative. CTA chest negative for PE. Evidence of small pleural effusions--continue to diurese as noted above. -Continue with dose titration of warfarin (bridging with Lovenox) to obtain therapeutic INR--managed by primary team -Patient has inquired about need for FMLA for ongoing cardiology care/work up. Advised patient to reach out to his HR department to request intermittent FMLA. Forms can be brought to the cardiology office (ok to bring to [place] office) Case has been discussed with Dr. Mcgee. Further recommendations regarding plan of care as per his assessment. LILLIE Morrison [facility] Cardiology [facility] Admission and Anticipated Discharge Date Admission Date: March 22, 2025 Supervising Physician Co-Signing Physician Notes Attending attestation: Case reviewed with the advanced practitioner. I have personally performed a history and physical examination on the patient. I have reviewed the advanced practitioner's documentation on the date of service referenced in note, and I agree with, and take responsibility for the plan of care. Subjective: No complaints this am SR in the 80s noted on telemetry. Review of chart reveals past diagnosis of typical atrial flutter for which he underwent transesophageal echocardiogram guided direct-current cardioversion at [facility] performed by Dr. Hartman in March,. Exam: Cardiovascular regular rhythm, no murmurs, bilateral lower extremity edema, right worse than left Data: EKG performed am of 03/23= SR at 74 bpm, with repolarization changes consistent with LVH. Echocardiogram with moderate to severe concentric LVH. Mild troponin elevation with measurements of 20.5, 22.3, and 20.1 PG per mL (flat trend) Impression/ Plan: Hypertensive urgency Nonadherence Possible mild volume overload on chest x-ray * DC topical nitroglycerin * Change metoprolol to Coreg 6.25 mg BID * increase spironolactone to 25 mg daily * Continue lisinopril 40 mg daily * INR 1.2, continue lovenox bridge and coumadin , goal INR 2-3 * Would like to see SBP readings <160 mmHg off of topical nitroglycerin prior to DC. * Cardiology follow up as outpatient at [facility] with nuclear stress just before follow up visit. Justen Mcgee, Subjective 03/23/2025: Patient seen and examined in follow up today. Feeling better than yesterday. Denies any chest pain, pressure or palpitations. Reports improvement in his breathing, remains on room air Spo2 92% per records review. He is out of bed in the chair, but has been up ambulating the halls feeling marked improvement. Endorses improvement in BLE edema BP still remains well above target Labs, vitals, diagnostics, telemetry and documentation reviewed. Telemetry reviewed showing SR with occasional PVC rates 70-80's. No acute events overnight. Review of Systems Review of Systems: All systems reviewed & are unremarkable except as noted in HPI & below Physical Exam Constitutional: well developed, + ill appearing and + obese; no acute distress Neck: normal visual inspection and trachea midline Respiratory: normal respiratory effort; no respiratory distress, no labored breathing and no cough Auscultation: lungs clear to auscultation bilaterally; no diminished lung sounds, no crackles, no rales, no rhonchi and no wheezes Cardiovascular: Rate/Rhythm: regular rate and regular rhythm Heart Sounds: normal S1 and normal S2; no murmur Vessels: dorsalis pedis pulses present; no JVD Extremities: + edema (Trace BLE Right appears larger than left ) Skin: no rashes, warm and dry Psychiatric: A+Ox3, euthymic affect Results & Data Vital Signs (Past 12 Hours) Vital Signs Temp Pulse Pulse Resp BP BP Pulse Ox 03/23/25 07:15 36.5 C 78 20 170/110 H 92 03/23/25 05:45 166/109 H 173/130 H 03/23/25 03:25 71 23 93 03/23/25 03:03 36.4 C L 70 18 157/99 H 93 03/22/25 23:18 79 23 92 03/22/25 22:59 36.4 C L 78 18 145/92 H 92 03/22/25 22:03 84 O2 Del Method FiO2 03/23/25 07:15 Room Air 03/23/25 05:45 03/23/25 03:25 21 03/23/25 03:03 CPAP 03/22/25 23:18 21 03/22/25 22:59 Room Air 03/22/25 22:03 Laboratory Results Cardiac Enzymes 03/22/25 03/22/25 03/22/25 Range/Units 10:50 13:00 19:07 Troponin I High Sens 22.3 H 20.1 H 23.1 H (0-20) pg/ml Coagulation 03/23/25 Range/Units 05:56 PT 12.8 H (9.0-12.0) Seconds Lipids 03/23/25 Range/Units 05:56 Triglycerides 71 (0-150) mg/dl Cholesterol 139 (0-200) mg/dl HDL Cholesterol 25 mg/dl Cholesterol/HDL Ratio 5.6 H (0-5) CBC 03/23/25 Range/Units 05:56 WBC 9.30 (4.8-10.8) K/ul RBC 4.90 (4.70-6.10) M/uL Hgb 13.3 L (14.0-18.0) g/dL Hct 40.5 L (42.0-52.0) % Plt Count 263 (130-400) K/uL Neut # (Auto) 5.30 (1.40-6.50) K/uL Lymph # (Auto) 2.34 (1.20-3.40) K/uL Towns # (Auto) 1.04 H (0.11-0.59) K/uL Eos # (Auto) 0.51 H (0.00-0.50) K/uL Baso # (Auto) 0.08 (0.00-0.20) K/uL Comprehensive Metabolic Panel 03/23/25 Range/Units 05:56 Sodium 139 (136-145) mmol/L Potassium 3.4 L (3.5-5.1) mmol/L Chloride 102 (98-107) mmol/L Carbon Dioxide 30 (21-32) mmol/L BUN 17 (6-23) mg/dl Creatinine 1.01 (0.6-1.4) mg/dl Glucose 87 (70-99(Fasting)) mg/dl Calcium 9.0 (8.6-10.3) mg/dl Intake and Output 03/22/25 03/23/25 03/23/25 22:59 06:59 14:59 Intake Total 1080 / 1680 600 / 1680 Output Total 2211 / 2761 350 / 2761 Balance -1131 / -1081 250 / -1081 Intake: Oral 1080 / 1680 600 / 1680 Output: Urine 2210 / 2760 350 / 2760 # Bowel Movements Other: Weight 121.6 kg Weight Measurement Method Standing Scale Coding Level of Care Code 41259 SUB INP/OBS CARE 3/50MIN Diagnoses Hypertensive emergency I16.1 Chest pain R07.9 Shortness of breath R06.02 Elevated troponin R79.89 Acute on chronic heart failure with preserved ejection fraction (HFpEF) I50.33 Subtherapeutic international normalized ratio (INR) R79.1 Elevated d-dimer R79.89 Noncompliance with medications Z91.148 Time Spent (min) 35
--- NOTE | 2025-03-23 12:04 | Hospitalist Progress Note ---
Date of Service March 23, 2025 Assessment & Plan (1) CHF exacerbation: (2) Elevated troponin: (3) Hypertensive emergency: (4) Noncompliance with medications: Plan Patient is a 55y/o M with PMHx significant for DM type II, LILLIANA on CPAP, history of atrial flutter anticoagulated on Coumadin, chronic diastolic CHF, HTN, morbid obesity, tobacco use disorder and history of alcohol abuse as per records who presented to the ED with c/o SOB x past few days, primarily with exertion; + orthopnea. Also with exertional chest tightness. #Acute on chronic diastolic CHF -ISO medication noncompliance -CXR: cardiomegaly w/ pulm vasc congestion -CXR did also note possible medial R basilar opacity c/f atelectasis vs artifact vs PNA -TTE, 08/2024: EF 60-64%, moderately increased LV wall thickness, grade I DD, mildly enlarged aortic root, dilated proximal IVC -TTE 03/22-- EF 60%, mild pHTN -No O2 requirements Plan -Continue IV lasix BID per cardio -Monitor renal function, IOs -GDMT as tolerated -Anticipate DC home tomorrow. Will need work excuse #HTN emergency #Elevated troponin 2/2 HTN emergency -BP improving but remains elevated at 150/90 03/23 Plan -Cardio DC metoprolol and started coreg -Aldactone increased to 25mg daily -Lisinopril 40mg daily #H/o atrial flutter s/p TAVON guided DCCV in 2019 #Chronic anticoagulation therapy with Coumadin #Subtherapeutic INR -Last seen by [facility] shakira in August 2020 -Not taking home coumadin Plan INR remains subtherapeutic. continue coumadin with daily INR Lovenox bridge for now #Hypokalemia -Replace and follow #DMII Hgb A1c 7.5% as of August 2024 On metformin SSI protocol while admitted Appreciate glycemic pharm consult for assistance w/ insulin management Follow BSG checks ACHS #H/o alcohol abuse as per records Last alcoholic beverage consumed approx 2wk ago #Tobacco use Daily chewing tobacco use Cessation encouraged Denied need for nicotine patch at this time #LILLIANA Intermittent noncompliance w/ CPAP SKIVER BLOCKERS Agreeable with CPAP HS during hospitalization Education provided on the importance of CPAP compliance #Morbid obesity Lifestyle changes encouraged DVT Prophylaxis: SQ Lovenox, Coumadin Code Status: FULL CODE I spent a total of 61 minutes coordinating, documenting, and providing care for this patient excluding time spent in the performance of separately billed services or time spent by another provider/QHP. This included personally reviewing all current laboratories and imaging studies, medical reconciliation, outpatient chart review and discussion with specialists. Admission and Anticipated Discharge Date Admission Date: March 22, 2025 Subjective Feeling well today. Patient denies F/C, CP, palpitations, SOB, dyspnea, abd pain, N/V/D wants to go home Physical Exam Physical Exam: Vitals and labs reviewed General: Well appearing, NAD HEENT: EOMI, PERRLA Neck: Supple Cardiac: RRR no rubs gallops or murmurs Lungs: CTA no rhonchi wheezing or rales Abd: S NT ND BS positive : No miles MSK: Full ROM. No obvious deformities Ext: trace b/l LE Edema Skin: Warm, Dry Neuro: AOx3 No focal deficits. Psych: Normal Mood Results & Data Results & Data Vital Signs (Past 12 Hours) Vital Signs Temp Pulse Pulse Resp BP BP Pulse Ox 03/23/25 11:47 36.8 C 80 20 150/92 H 92 03/23/25 08:54 153/90 H 03/23/25 08:43 85 03/23/25 07:15 36.5 C 78 20 170/110 H 92 03/23/25 05:45 166/109 H 173/130 H 03/23/25 03:25 71 23 93 03/23/25 03:03 36.4 C L 70 18 157/99 H 93 O2 Del Method FiO2 03/23/25 11:47 Room Air 03/23/25 08:54 03/23/25 08:43 03/23/25 07:15 Room Air 03/23/25 05:45 03/23/25 03:25 21 03/23/25 03:03 CPAP Laboratory Results Abnormal lab results 03/22/25 03/22/25 03/22/25 Range/Units 13:00 16:17 19:07 Hgb (14.0-18.0) g/dL Hct (42.0-52.0) % RDW Coeff of Sanjuanita (11.5-14.5) % Payne # (Auto) (0.11-0.59) K/uL Eos # (Auto) (0.00-0.50) K/uL PT (9.0-12.0) Seconds INR (0.9-1.1) D-Dimer 540 H* (0-500) ug/L FEU Potassium (3.5-5.1) mmol/L POC Glucose 100 H 116 H (70-99) mg/dl Troponin I High Sens 20.1 H 23.1 H (0-20) pg/ml Cholesterol/HDL Ratio (0-5) 03/23/25 03/23/25 03/23/25 Range/Units 05:56 07:17 11:21 Hgb 13.3 L (14.0-18.0) g/dL Hct 40.5 L (42.0-52.0) % RDW Coeff of Sanjuanita 15.3 H (11.5-14.5) % Payne # (Auto) 1.04 H (0.11-0.59) K/uL Eos # (Auto) 0.51 H (0.00-0.50) K/uL PT 12.8 H (9.0-12.0) Seconds INR 1.2 H (0.9-1.1) D-Dimer (0-500) ug/L FEU Potassium 3.4 L (3.5-5.1) mmol/L POC Glucose 100 H 117 H (70-99) mg/dl Troponin I High Sens (0-20) pg/ml Cholesterol/HDL Ratio 5.6 H (0-5) (1) CHF exacerbation Heart failure type: unspecified Qualified Code(s): I50.9 - Heart failure, unspecified
[2025-03-23] MEDS: SPIRONOLACTONE 12.5 MG TAB PO ONE (12:22)
[2025-03-23 16:00] VITALS: RESP 18
[2025-03-24 06:50] LABS: Anion Gap 10.0 (3-11); Blood Urea Nitrogen 20.0 mg/dl (6-23); Calcium 9.3 mg/dl (8.6-10.3); Carbon Dioxide 28.0 mmol/L (21-32); Chloride 100.0 mmol/L (98-107); Creatinine Clr Calc Pharmacy 104.7 ml/min; Glucose 93.0 mg/dl (70-99(Fasting)); Potassium 3.5 mmol/L (3.5-5.1); Sodium 138.0 mmol/L (136-145)
[2025-03-24 06:54] LABS: INR 1.2 (0.9-1.1); Prothrombin Time 12.5 Seconds (9.0-12.0)
[2025-03-24] MEDS: SPIRONOLACTONE 25 MG TAB PO SCH (08:35)
--- NOTE | 2025-03-24 10:44 | Electrocardiogram Report ---
Test Reason : Blood Pressure : */* mmHG Vent. Rate : 74 BPM Atrial Rate : 74 BPM P-R Int : 210 ms QRS Dur : 128 ms QT Int : 456 ms P-R-T Axes : 19 -45 147 degrees QTcB Int : 506 ms Sinus rhythm with 1st degree A-V block Left axis deviation Left ventricular hypertrophy with QRS widening and repolarization abnormality ( R in aVL , Sokolow-Ly on , Mahin product , Romhilt-Marte ) Abnormal ECG When compared with ECG of 22-Mar-2025 08:56, (unconfirmed) Premature ventricular complexes are no longer Present VA interval has increased Minimal criteria for Septal infarct are no longer Present Confirmed by Nathan Tariq ([id number]) on 03/24/2025 10:43:49 AM Referred By: REFERRED SELF Confirmed By: Nathan Tariq
[2025-03-24 11:35] VITALS: PULSE 83; TEMP 98.4; O2SAT 93
--- NOTE | 2025-03-24 11:59 | Cardiology Progress Note ---
Date of Service March 24, 2025 Assessment & Plan (1) Hypertensive emergency: (2) Chest pain: (3) Shortness of breath: (4) Elevated troponin: (5) Acute on chronic heart failure with preserved ejection fraction (HFpEF): (6) Subtherapeutic international normalized ratio (INR): (7) Elevated d-dimer: (8) Noncompliance with medications: Plan Assessment: 55 year old male with history of paroxysmal Atrial flutter with prior cardioversion, HTN, LILLIANA on CPAP with known medication non-compliance that presents with several weeks of worsening dyspnea, chest tightness on exertion and orthopnea. BP markedly elevated. Patient has not taken regular doses of any of his medications including his warfarin. Cardiology consulted for further evaluation and recommendations. Plan 03/23/25: 1. Hypertensive emergency 2. chest pain 3. Shortness of breath 4. Elevated Troponin 5. Acute on Chronic HFpEF 6. Elevated d-dimer 7. Non-compliance with medications -patient with known non-compliance of his medications for multiple reasons/partly related to shift work. -BP with significant improvement, reasonably controlled upon exam today. -Continue Coreg 6.25mg PO BID -Continue Lisinopril 40mg PO QD, Spironolactone 25mg PO QD -chest pain with mild troponin elevation in the setting of markedly elevated blood pressures as well as evidence of volume overload on exam. -Transition to Torsemide 60mg PO Daily upon discharge -Echocardiogram obtained showing preserved LVEF, no regional wall motion abnormalities and moderate to severe concentric LVH in the setting of longstanding poorly controlled hypertension. -Strict I&O, daily weights with a standing scale and close monitoring of renal function/electrolytes. Serum K > 4.0 and serum mag > 2.0 -Continue to monitor on telemetry--no acute events overnight. -Encourage patient to be up walking the halls. -Known non-compliance of all medications including warfarin. Elevated D-dimer. Venous duplex negative. CTA chest negative for PE. Evidence of small pleural effusions--continue to diurese as noted above. -Continue with dose titration of warfarin (bridging with Lovenox) to obtain therapeutic INR--managed by primary team. will send note over to [facility] office to arrange for close [facility] coag follow up as well as a close cardiology follow up in our [place] office. -Patient has inquired about need for FMLA for ongoing cardiology care/work up. Advised patient to reach out to his HR department to request intermittent FMLA. Forms can be brought to the cardiology office (ok to bring to [place] office) Case has been discussed with Dr. Mcgee. Further recommendations regarding plan of care as per his assessment. LILLIE Morrison [facility] Admission and Anticipated Discharge Date Admission Date: March 22, 2025 Supervising Physician Co-Signing Physician Notes Attending attestation: Case reviewed with the advanced practitioner. I have personally performed a history and physical examination on the patient. I have reviewed the advanced practitioner's documentation on the date of service referenced in note, and I agree with, and take responsibility for the plan of care. Subjective: No complaints this am SR in the 80s noted on telemetry. Exam: Cardiovascular regular rhythm, no murmurs, bilateral lower extremity edema, right worse than left Data: EKG performed am of 03/23= SR at 74 bpm, with repolarization changes consistent with LVH. Echocardiogram with moderate to severe concentric LVH. Mild troponin elevation with measurements of 20.5, 22.3, and 20.1 PG per mL (flat trend) Impression/ Plan: Hypertensive urgency Nonadherence Possible mild volume overload on chest x-ray Patient stable for discharge on the following medications * Carvedilol 6.25 mg twice daily (replaces metoprolol), lisinopril 40 mg daily, spironolactone 25 mg daily, torsemide 60 mg daily, warfarin 5 mg, dose adjusted for goal INR of 2-3, Lovenox bridge, metformin 1000 mg twice a day, diltiazem 120 mg daily. * Hospital service arranging follow-up including basic metabolic panel, follow- up with anticoagulation clinic for Coumadin therapy. * Will arrange cardiology follow-up. Patient prefers to reestablish with the [facility] site. Justen Mcgee, Subjective 03/24/2025: Patient seen and examined in follow up today. Feeling well from a cardiac perspective. Offers no acute concerns. He has been up ambulating the halls feeling well. Labs, vitals, diagnostics, telemetry and documentation reviewed. Telemetry reviewed showing SR with PVC's rates 60-80's Review of Systems 2 Review of Systems: All systems reviewed & are unremarkable except as noted in HPI & below Physical Exam Constitutional: well developed and + obese; no acute distress Neck: normal visual inspection and trachea midline Respiratory: normal respiratory effort; no respiratory distress, no labored breathing and no cough Auscultation: lungs clear to auscultation bilaterally; no diminished lung sounds, no crackles, no rales, no rhonchi and no wheezes Cardiovascular: Rate/Rhythm: regular rate and regular rhythm Heart Sounds: normal S1 and normal S2; no murmur Vessels: dorsalis pedis pulses present; no JVD Extremities: + edema (Trace BLE Right appears larger than left ) Skin: no rashes, warm and dry Psychiatric: A+Ox3, euthymic affect Results & Data Vital Signs (Past 12 Hours) Vital Signs Temp Pulse Pulse Resp BP BP Pulse Ox 03/24/25 11:32 36.9 C 83 135/91 93 03/24/25 07:55 36.4 C L 82 176/113 H 94 03/24/25 07:00 78 03/24/25 07:00 68 03/24/25 03:05 36.6 C 65 18 155/103 H 94 O2 Del Method 03/24/25 11:32 Room Air 03/24/25 07:55 Room Air 03/24/25 07:00 03/24/25 07:00 03/24/25 03:05 Room Air Laboratory Results Coagulation 03/24/25 Range/Units 05:50 PT 12.5 H (9.0-12.0) Seconds Comprehensive Metabolic Panel 03/24/25 Range/Units 05:50 Sodium 138 (136-145) mmol/L Potassium 3.5 (3.5-5.1) mmol/L Chloride 100 (98-107) mmol/L Carbon Dioxide 28 (21-32) mmol/L BUN 20 (6-23) mg/dl Creatinine 1.03 (0.6-1.4) mg/dl Glucose 93 (70-99(Fasting)) mg/dl Calcium 9.3 (8.6-10.3) mg/dl Intake and Output 03/23/25 03/24/25 03/24/25 22:59 06:59 14:59 Output Total 2200 / 3275 175 / 3275 Balance -2200 / -5 -175 / -2194 Output: Urine 2200 / 3275 175 / 3275 Other: Weight 120.5 kg Weight Measurement Method Standing Scale Coding Level of Care Code 19762 SUB INP/OBS CARE 3/50MIN Diagnoses Hypertensive emergency I16.1 Chest pain R07.9 Shortness of breath R06.02 Elevated troponin R79.89 Acute on chronic heart failure with preserved ejection fraction (HFpEF) I50.33 Subtherapeutic international normalized ratio (INR) R79.1 Elevated d-dimer R79.89 Noncompliance with medications Z91.148 Time Spent (min) 35
--- NOTE | 2025-03-24 12:19 | Discharge Summary ---
Discharge Summary Date of Service March 24, 2025 Principal Dx & Hospital Course #1 = Principal Diagnosis (1) CHF exacerbation: (2) Elevated troponin: (3) Hypertensive emergency: (4) Noncompliance with medications: Plan Patient is a 55y/o M with PMHx significant for DM type II, LILLIANA on CPAP, history of atrial flutter anticoagulated on Coumadin, chronic diastolic CHF, HTN, morbid obesity, tobacco use disorder and history of alcohol abuse as per records who presented to the ED with c/o SOB x past few days, primarily with exertion; + orthopnea. Also with exertional chest tightness. He was admitted for acute on chronic HFpEF secondary to non compliance with home meds. Cardio was consulted. Started on IV lasix with good response. BP also elevated which gradually improved with resuming home cardiac regimen. He was not taking any home meds including coumadin. coumadin resumed along wiht lovenox bridge. Today he feels well and wishes to go home. vitals and labs are stable. cardio cleared for discharge. He will continue with lovenox bridge until his INR is therapeutic. He has an appt with coumadin clinic on friday. He will f/u with cardio as OP. He was advised on the importance of compliance with his medications. #Acute on chronic diastolic CHF -ISO medication noncompliance -CXR: cardiomegaly w/ pulm vasc congestion -CXR did also note possible medial R basilar opacity c/f atelectasis vs artifact vs PNA -TTE, 08/2024: EF 60-64%, moderately increased LV wall thickness, grade I DD, mildly enlarged aortic root, dilated proximal IVC -TTE 03/22-- EF 60%, mild pHTN -No O2 requirements #HTN emergency #Elevated troponin 2/2 HTN emergency -BP improved today Plan -Cardio DC metoprolol and started coreg -Aldactone increased to 25mg daily -Lisinopril 40mg daily #H/o atrial flutter s/p TAVON guided DCCV in 2019 #Chronic anticoagulation therapy with Coumadin #Subtherapeutic INR -Last seen by [facility] in August 2020 -Not taking home coumadin Plan INR remains subtherapeutic. 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 This included personally reviewing all current laboratories and imaging studies, medical reconciliation, outpatient chart review and discussion with specialists. Notes For Next Care Provider Medication Changes From Visit Cardizem DC. metoprolol DC. Coreg, aldactone started. torsemide 60mg, lisinopril 40 and coumadin 5mg resumed. Admission HPI Per Admitting Provider Patient is a 55y/o M with PMHx significant for DM type II, LILLIANA on CPAP, history of atrial flutter anticoagulated on Coumadin, chronic diastolic CHF, HTN, morbid obesity, tobacco use disorder and history of alcohol abuse as per records who presented to the ED with c/o SOB. History obtained from the patient, discussion with ED provider and associated chart review. Admits to worsening SOB over the "past couple of days." Primarily with exertion however he has been experiencing significant orthopnea. Has LILLIANA, somewhat noncompliant with CPAP use. Has also noticed worsening BLE edema over the past week. 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 When questioned in particular regarding his diuretic regimen, he states that he last took his torsemide "a few days ago" and that he does not like taking this medication as prescribed because it makes him urinate too often. Does not keep track of his weight; unsure of baseline weight. Has been experiencing some chest tightness, primarily with exertion. Typically resolves with rest. Had some lightheadedness and dizziness yesterday. No reported cough or fever. Urinating without issue. Passing bowels okay. Uses chewing tobacco. Updated Medication List Medication Instructions Recorded Confirmed Type albuterol sulfate 90 mcg/actuation 2 inh inhalation Q4H PRN 03/22/25 03/22/25 History aerosol inhaler SOB/Wheezing diltiazem HCl 120 mg 120 mg PO QAM 03/22/25 03/22/25 History capsule,extended release 24 hr lisinopril 40 mg tablet 40 mg PO QAM 03/22/25 03/22/25 History metoprolol tartrate 50 mg tablet 50 mg PO BID 03/22/25 03/22/25 History torsemide 20 mg tablet 60 mg PO QAM 03/22/25 03/22/25 History warfarin 5 mg tablet 5 mg PO DAILY 03/22/25 03/22/25 History carvedilol 6.25 mg tablet 6.25 mg PO BIDM 30 days #60 tabs 03/24/25 Rx enoxaparin 120 mg/0.8 mL 120 mg (0.8 mL) subcut Q12H 7 days 03/24/25 Rx subcutaneous syringe (Lovenox) #11.2 mL lisinopril 40 mg tablet 40 mg PO QAM 30 days #30 tabs 03/24/25 Rx metformin 500 mg tablet,extended 1,000 mg (2 x 500 mg) PO BID 30 03/24/25 Rx release 24 hr days #120 tabs spironolactone 25 mg tablet 25 mg PO QAM 30 days #30 tabs 03/24/25 Rx torsemide 20 mg tablet 60 mg (3 x 20 mg) PO DAILY #90 tabs 03/24/25 Rx warfarin 5 mg tablet 5 mg PO DAILY@1600 30 days #30 tabs 03/24/25 Rx Hospital Stay Data Consultations 03/22/25 09:54 ED Decision to Admit Stat 03/22/25 10:46 Consult Cardiology Routine Diagnostic Imagining Performed 03/22/25 11:34 US venous doppler LE BI Stat 03/22/25 17:26 CT angio chest PE protocol Urgent Pending Results Patient Have Any Pending Studies at Discharge: No Discharge Instructions Given to Patient (Per Discharging Provider) Please take your medications as prescribed. continue taking lovenox injections along with warfarin until your INR is 2.0. You have an appt friday with the coumadin clinic and will have your INR checked friday. Follow up with cardiology as outpatient. Total Time Total Time Spent Total Time Spent (In Minutes): 49
[2025-03-24 12:36] VITALS: BP 155/103
--- NOTE | 2025-03-25 18:19 | Electrocardiogram Report ---
Test Reason : Blood Pressure : */* mmHG Vent. Rate : 100 BPM Atrial Rate : 100 BPM P-R Int : 178 ms QRS Dur : 120 ms QT Int : 380 ms P-R-T Axes : 47 -50 106 degrees QTcB Int : 490 ms Sinus rhythm with occasional Premature ventricular complexes Possible Left atrial enlargement Left anterior fascicular block Left ventricular hypertrophy with QRS widening and repolarization abnormality ( R in aVL , Mahin pr oduct , Romhilt-Marte ) Cannot rule out Septal infarct , age undetermined Abnormal ECG No previous ECGs available Confirmed by Nathan Tariq ([id number]) on 03/25/2025 6:18:40 PM Referred By: REFERRED SELF Confirmed By: Nathan Tariq
== END 2025-03-24 14:15 | disposition home or self-care (01) | DRG 291 ==
LOC: ED 08:42 → SUATTDRO 10:48 → EDINP 10:48 → 2S 13:36